=== PATIENT | male | born 1960 | race Caucasian/White ===

== ENCOUNTER 2019-01-08 03:26 | Outpatient (CLI) | payer OTHER ==
[2019-01-08 11:39] LABS: #Eosinphils 0.7 thou/uL (0.0-0.7); #Lymphocytes 1.9 thou/uL (1.20-3.40); #Monocytes 0.6 thou/uL (0.11-0.59); #Neutrophils 3.8 thou/uL (1.40-6.50); %Basophils 0.2 % (0.0-1.0); %Eosinophils 10.4 % (0.0-10.0); %Lymphocytes 27.5 % (21.0-51.0); %Monocytes 8.5 % (0.0-10.0); %Neutrophils 53.4 % (42.0-75.0); Hemoglobin 14.8 g/dL (14.0-18.0); Mean Corpuscular HGB CONC 33.4 g/dL (32.0-36.0); Mean Corpuscular Volume 86.7 fL (78.0-98.0); Mean Platelet Volume 7.2 fL (7.4-10.4); Platelet Count 236 thou/uL (130-400); RBC Distribution Width 11.8 % (11.5-14.5); Red Blood Cell (RBC) Count 5.09 mill/uL (4.70-6.10); White Blood Cell (WBC) Count 7.1 thou/uL (4.8-10.8)
--- NOTE | 2019-01-10 07:13 | EKG ---
Test Reason : Blood Pressure : / mmHG Vent. Rate : 074 BPM Atrial Rate : 074 BPM P-R Int : 142 ms QRS Dur : 120 ms QT Int : 374 ms P-R-T Axes : 062 021 032 degrees QTc Int : 415 ms Normal sinus rhythm Right bundle branch block Abnormal ECG No previous ECGs available Confirmed by JAMIL GOULD ([id number]) on 01/10/2019 7:12:46 AM Referred By: ABRIL Confirmed By:JAMIL GOULD
== END 2019-01-08 03:27 | disposition home or self-care (01) ==
LOC: LABBT 03:26
PROVIDERS: ATTEND Orthopaedic Surgery
DX: Z01.818 Encounter for other preprocedural examination (principal); M75.101 Unspecified rotator cuff tear or rupture of right shoulder, not specified as traumatic
CPT/HCPCS: 85025; 93005; 93010

== ENCOUNTER 2019-01-09 05:40 | Day surgery (SDC) | payer OTHER ==
[2019-01-08 10:56] VITALS: BMI 27.8
[2019-01-09] MEDS ORDERED: Bupivacaine/Epinephrine 0.25% 30 ML VIAL ONE (06:24)
[2019-01-09] MEDS ORDERED: Fentanyl 100 MCG/2 ML VIAL ONE ×2 (06:29→09:48)
[2019-01-09] MEDS ORDERED: Midazolam HCl 2 mg/2 ml Vial ONE (06:29)
[2019-01-09] MEDS ORDERED: traMADol HCl 50 MG TAB PO PRN ×2 (07:19)
[2019-01-09] MEDS ORDERED: Zolpidem Tartrate 5 MG TAB PO PRN (07:19)
[2019-01-09] MEDS ORDERED: Promethazine HCl 25 MG/ML VIAL IM PRN (07:19)
[2019-01-09] MEDS ORDERED: HYDROcodone/Acetaminophen 10/325 mg Tablet PO PRN ×2 (07:19)
[2019-01-09] MEDS ORDERED: Fentanyl 100 MCG/2 ML VIAL IV PRN (07:19)
[2019-01-09] MEDS ORDERED: Ondansetron PF 4 MG/2 ML Vial IVP PRN (07:19)
[2019-01-09] MEDS ORDERED: Ropivacaine 0.2% 550 ML 550 ML NERVE BLCK SCH (07:19)
[2019-01-09] MEDS ORDERED: Lidocaine 2% Jelly 5 ML TUBE ONE (07:20)
[2019-01-09] MEDS ORDERED: methylPREDNISolone Acetate 40 mg/ml Vial ONE (07:55)
--- NOTE | 2019-01-09 08:09 | RAD ---
Exam: 2 views right shoulder HISTORY: Requested in the operating room. COMPARISON: None FINDINGS: Endotracheal tube is noted in place with tip overlying the T5 vertebral body. Linear density overlies the mediastinum with tip at the level of the distal esophagus. This may represent a temperature probe. Linear densities are seen within the right midlung zone and right lung base which may relate t o atelectasis. This exam is obtained in a shallow depth of inspiration. No acute fracture, dislocation, or other acute osseous abnormality is identified. No metallic foreign body is visualized. IMPRESSION: 1. No acute osseous abnormality is identified. 2. Endotracheal tube in place. 3. Probable atelectasis right lung base.
[2019-01-09] MEDS ORDERED: Lidocaine 1% (PF) 30 ML VIAL ONE (08:20)
[2019-01-09] MEDS ORDERED: Ketorolac Tromethamine 30 MG/ML VIAL IVP SCH (12:00)
[2019-01-09] MEDS ORDERED: Ropivacaine 0.5% HCl/PF (150 MG/30 ML VIAL) ONE (13:20)
[2019-01-09] MEDS ORDERED: Ropivacaine 0.2% HCl/PF (40 MG/20 ML VIAL) ONE (13:20)
[2019-01-09] MEDS ORDERED: Dexamethasone 20 MG/5 ML VIAL ONE (17:01)
[2019-01-09] MEDS ORDERED: Ondansetron PF 4 MG/2 ML Vial ONE (17:01)
[2019-01-09] MEDS ORDERED: ePHEDrine 50 MG/ML VIAL ONE (17:01)
[2019-01-09] MEDS ORDERED: PROPOFOL 200 MG/20 ML VIAL ONE (17:01)
[2019-01-09] MEDS ORDERED: Rocuronium Bromide 10 MG/ML (10ML VIAL) ONE (17:01)
[2019-01-09] MEDS ORDERED: Ketorolac Tromethamine 30 MG/ML VIAL ONE (17:01)
[2019-01-09] MEDS ORDERED: PHENYLEPHRINE-NS 100 MCG/ML 10 ML SYRINGE ONE (17:01)
--- NOTE | 2019-01-10 09:43 | OP ---
DATE OF PROCEDURE: 01/09/2019 PREOPERATIVE DIAGNOSIS: High-grade partial-thickness rotator cuff tearing on supraspinatus. POSTOPERATIVE DIAGNOSES: 1. High-grade partial-thickness rotator cuff tear, supraspinatus. 2. Adhesive capsulitis. PROCEDURES PERFORMED: 1. Right arthroscopic rotator cuff repair. 2. Manipulation under anesthesia with lysis of adhesions. 3. Intraarticular steroid injection. ANESTHESIOLOGIST: Cesar Goodman MD ANESTHESIA: The patient received general endotracheal intubation with interscalene block. ESTIMATED BLOOD LOSS: 3 mL. TOURNIQUET TIME: None. IMPLANTS: A 5.5 corkscrew and a 5.5 SwiveLock, 4.75 swivelock was in and out ANTIBIOTICS: Ancef 2 g. COMPLICATIONS: Interosseous posterior portal. HISTORY OF PRESENT ILLNESS: Mr. Suggs is a 58-year-old male, who presented with right shoulder pain, which began about 6 months ago. The patient had been treated by Dr. Higgins with injections, which gave him temporary relief. The patient had MRI evidence from an MRI performed in [place] showing a high-grade rotator cuff tear. The patient had failed conservative measures and desired to proceed with right arthroscopic rotator cuff repair, possible decompression and possible debridement of acromion. I discussed with the patient risks and benefits of surgery to include pain, scar, bleeding, infection, damage to vital structures, decreased range of motion or strength, nonunion, fracture above or below the implants, need for further surgeries, and loss of life and limb. The patient understood the risks and benefits and elected to proceed. DESCRIPTION OF PROCEDURE: Time-out was performed designating the patient's right upper extremity as the operative site based on site, consents, and marking. After time-out, the patient had been placed in a beach chair position. As I started to move his arm, I noted that he had a firm endpoint at 20 degrees and about 110 degrees. As I was bringing his arm overhead, I heard several pops, which sounds like breaking of adhesions, which the patient was not able to elevate because of pain during the exam in the clinic. As I felt those pops, the patient did have an improvement in overhead elevation to about 160 to 170 as well as external rotation to almost 50. I took intraoperative AP and scapular Y-views showing no fracture of what I had been performed, so I had basically done some lysis of adhesions preoperatively, but with full use of graft as well as the manipulation. I then prepped the patient's right shoulder and placed my intraarticular portal. It was difficult due to the spacing through the shoulder was tight consistent with the previous adhesive capsulitis. I looked inside the shoulder. There was synovitis and inflamed tissue throughout. There was no obvious tear noted intraarticularly. I looked at the patient's shoulder throughout, cleaned out the hematoma, and looked to the root of the biceps, which did not have any full-thickness tearing. The subscapularis was intact. There was not a large thickened inferior glenohumeral ligament that was taut or overlying the subscapularis. The patient had a release and also had about 60 degrees of external rotation. Therefore, I did not take any further down inferiorly. I looked throughout the shoulder. No other lesions were noted. I then moved to sub-acromion. I moved the bursa to expose the patient's rotator cuff. I took down the bursa as well as some CA ligament and portion of the attachments to expose the acromion, but I did not take it doing acromioplasty. It was also tight within the shoulder subacromially. I found the patient's small leading edge tear, which was a small hole. I debrided the hole off and placed a single 5.5 corkscrew suture anchor, passed 2 stitches, and closed the rotator cuff interval. I closed the rotator cuff tear, sewing both sutures and placed a second lateral row of 4.75, which on tensioning pulled out. I went up to slightly larger 5.5 corkscrew anchor, which held in place, cut the sutures, and washed. I then went back to look intraarticularly. When I went posteriorly, I was having difficulty because of the swelling to find my previous track and I made an interosseous within the humeral head interosseous portal, which I did not. I switched and moved anteriorly, looked anteriorly and made sure that I was within the joint with my spinal needle taking picture. I injected 10 mL of Marcaine and 80 mg of Depo intraarticularly to help with some of the synovitis and inflammation from the patient's frozen shoulder. I then washed, I had taken final pictures, and closed with 3-0 nylon. The patient will be placed in a sling. Actually, I am going to start him acutely against protocol for rotator cuff repairs for range of motion because the patient has scarring and I do not want it to adhere back down. We will begin passive range of motion immediately and I will talk with my therapist to have it begun. Job ID: [id number] [id number]
== END 2019-01-09 11:50 | disposition home or self-care (01) ==
LOC: SDC 05:40
PROVIDERS: ATTEND Orthopaedic Surgery
PROC: 0RNJ4ZZ Release Right Shoulder Joint, Percutaneous Endoscopic Approach (ICD-10-PCS; principal; 2019-01-09)
PROC: 0RNJXZZ Release Right Shoulder Joint, External Approach (ICD-10-PCS; principal; 2019-01-09)
PROC: 0LQ14ZZ Repair Right Shoulder Tendon, Percutaneous Endoscopic Approach (ICD-10-PCS; principal; 2019-01-09)
PROC: 0RHJ44Z Insertion of Internal Fixation Device into Right Shoulder Joint, Percutaneous Endoscopic Approach (ICD-10-PCS; principal; 2019-01-09)
DX: M75.111 Incomplete rotator cuff tear or rupture of right shoulder, not specified as traumatic (principal); M75.01 Adhesive capsulitis of right shoulder; E11.42 Type 2 diabetes mellitus with diabetic polyneuropathy; Z79.84 Long term (current) use of oral hypoglycemic drugs; Z79.899 Other long term (current) drug therapy; Z88.8 Allergy status to other drugs, medicaments and biological substances
CPT/HCPCS: A4306; C1713; J0690; J1030; J1100; J1885; J2001; J2250; J2405; J2704; J2795; J3010; J3490